=== PATIENT | female | born 2005 | race Two or more races ===

== ENCOUNTER 2024-02-01 12:53 | Emergency (ER) | payer OTHER, SELFPAY ==
[2024-02-01 13:02] VITALS: BP 128/93; PULSE 90; TEMP 36.9; O2SAT 100; BMI 23.8
[2024-02-01] MEDS: DIPHENHYDRAMINE HCL 25 MG CAPSULE PO (14:16)
[2024-02-01] MEDS: FAMOTIDINE 20 MG TABLET PO (14:16)
[2024-02-01] MEDS: PREDNISONE 20 MG TABLET 60 MG PO (14:16)
--- NOTE | 2024-02-01 15:21 | ED_ITS ---
Documented by User: KEELY Lay 02/01/24 15:26 HPI - Skin/Abscess/Foreign Bdy General Chief complaint: Skin/Abscess/Foreign Body Stated complaint: rash Time Seen by Provider: 02/01/24 13:54 Source: patient Mode of arrival: walk-in Limitations: no limitations History of Present Illness HPI narrative: Through hospital contracted airplane flight attendant, this is a 18-year-old female who prese nted to the emergency department with complaint of rash. Onset about 3 weeks ago. Greatest concentration has been to her face, but also has complaint of areas to her back, abdomen. Patient reports that she was in contact with the chemical that is sprayed on grass. States that her tongue feels a little heavy. Otherwise denies any shortness of breath, difficulty swallowing. Quality:?as above Severity:?mild Timing:?as above Context: Normal setting and activity? Modifying factors:?has been taking benadryl Associated symptoms: as above Related Data Previous Rx's ?Medication ?Instructions ?Recorded famotidine 20 mg tablet (Pepcid) 20 mg PO BID 5 days #10 tabs 02/01/24 fexofenadine 60 mg tablet (Tamar 60 mg PO Q12H PRN allergy symptoms 02/01/24 Allergy) #14 tabs prednisone 20 mg tablet 40 mg (2 x 20 mg) PO DAILY 5 days 02/01/24 #10 tabs Allergies Allergy/AdvReac Type Severity Reaction Status Date / Time No Known Drug Allergies Allergy Verified 02/01/24 13:07 Review of Systems ROS Narrative CONST: Denies fever, chills HENT: Denies congestion, sore throat, trouble swallowing EYES: Denies eye itching, eye redness, eye swelling RESP: Denies difficulty breathing, choking MS: Denies swelling SKIN: +rash.? Denies wound NEURO: Denies numbness, paresthesias, weakness Exam Narrative Exam Narrative: Vital signs reviewed Nurses notes noted CONST: Nontoxic, well appearing, well nourished, in no distress.? No diaphoresis.?? HENT: normocephalic, atraumatic, moist mucous membrane, no abnormalities of the nose noted, hearing normal EYES: normal appearing conjunctiva, no apparent discharge bilat NECK: normal appearance MS: no edema, tenderness SKIN: (+) RASH. Only appreciated maculopapular lesions to face only. NEURO: A&Ox 3 PSYCH: normal mood, affect Constitutional Vital Signs, click to edit/add: Last Vital Signs Temp 98.4 F 02/01/24 13:02 Pulse 90 02/01/24 13:02 Resp 16 02/01/24 13:02 BP 128/93 H 02/01/24 13:02 Pulse Ox 100 02/01/24 13:02 Course Vital Signs Vital signs: Vital Signs Temperature 98.4 F 02/01/24 13:02 Pulse Rate 90 02/01/24 13:02 Respiratory Rate 16 02/01/24 13:02 Blood Pressure 128/93 H 02/01/24 13:02 Pulse Oximetry 100 02/01/24 13:02 Temperature 98.4 F 02/01/24 13:02 Pulse Rate 90 02/01/24 13:02 Respiratory Rate 16 02/01/24 13:02 Blood Pressure 128/93 H 02/01/24 13:02 Pulse Oximetry 100 02/01/24 13:02 MDM - Skin/Abscess/Foreign Bdy MDM Narrative Medical decision making narrative: This is a pleasant 18-year-old female who presents to the emergency department with complaint of rash. History and physical communicated through contracted airplane flight attendant. Mainly locating rash to face. Has also had it on abdomen, back. Reports contact with, that sprays on the grass about 3 weeks ago. Has been using Benadryl without relief. States that the rash is itchy. Denies any pain. Denies any shortness of breath, difficulty swallowing. On arrival, afebrile, vital signs are stable. On exam, nontoxic, well-appearing patient in no distress. He has maculopapular lesions diffusely to her face. No other lesions were appreciated on exam. Airway clear. Favor contact dermatitis Shingles, allergic reaction less likely based on history and physical exam Patient given dose of prednisone, Pepcid, Benadryl in the emergency department Disposition ? The patient was discharged. Plan: Patient will be discharged to home. Condition at time of disposition: stable She was given prescription for prednisone, fexofenadine, and Pepcid Advised to follow up with primary provider. Advised to return for any worsening and/or development of new, concerning signs or symptoms PLEASE NOTE: Portions of the medical record may have been produced using electronic staff psychologist and may contain errors with respect to translation of words which may not have been identified prior to finalization of the chart. Discharge Plan Discharge Stand Alone Forms: Portal Instructions Chief Complaint: Skin/Abscess/Foreign Body Clinical Impression: Pruritic rash Contact dermatitis Qualifiers: Contact dermatitis type: unspecified Contact dermatitis trigger: unspecified trigger Qualified Code(s): L25.9 - Unspecified contact dermatitis, unspecified cause Patient Disposition: Home, Self-Care Time of Disposition Decision: 13:57 Condition: Good Mode of Transportation: Private Vehicle Prescriptions / Home Meds: New prednisone 20 mg tablet 40 mg PO DAILY 5 Days Qty: 10 0RF famotidine [Pepcid] 20 mg tablet 20 mg PO BID 5 Days Qty: 10 0RF fexofenadine [Tamar Allergy] 60 mg tablet 60 mg PO Q12H PRN (Reason: allergy symptoms) Qty: 14 0RF Print Language: Portuguese Instructions: Contact Dermatitis (ED) Discharge Date/Time: 02/01/24 14:21 Documented by User: Moi Gutiérrez MD 02/01/24 20:39 HPI - Skin/Abscess/Foreign Bdy General Chief complaint: Skin/Abscess/Foreign Body Stated complaint: rash Time Seen by Provider: 02/01/24 13:54 Related Data Previous Rx's ?Medication ?Instructions ?Recorded famotidine 20 mg tablet (Pepcid) 20 mg PO BID 5 days #10 tabs 02/01/24 fexofenadine 60 mg tablet (Tamar 60 mg PO Q12H PRN allergy symptoms 02/01/24 Allergy) #14 tabs prednisone 20 mg tablet 40 mg (2 x 20 mg) PO DAILY 5 days 02/01/24 #10 tabs Allergies Allergy/AdvReac Type Severity Reaction Status Date / Time No Known Drug Allergies Allergy Verified 02/01/24 13:07 Exam Constitutional Vital Signs, click to edit/add: Last Vital Signs Temp 98.4 F 02/01/24 13:02 Pulse 90 06/11/24 13:02 Resp 16 02/01/24 13:02 BP 128/93 H 02/01/24 13:02 Pulse Ox 100 02/01/24 13:02 Course Vital Signs Vital signs: Vital Signs Temperature 98.4 F 02/01/24 13:02 Pulse Rate 90 02/01/24 13:02 Respiratory Rate 16 02/01/24 13:02 Blood Pressure 128/93 H 02/01/24 13:02 Pulse Oximetry 100 02/01/24 13:02 Temperature 98.4 F 02/01/24 13:02 Pulse Rate 90 02/01/24 13:02 Respiratory Rate 16 02/01/24 13:02 Blood Pressure 128/93 H 02/01/24 13:02 Pulse Oximetry 100 02/01/24 13:02 MDM - Skin/Abscess/Foreign Bdy MDM Narrative Medical decision making narrative: This is a pleasant 18-year-old female who presents to the emergency department with complaint of rash. History and physical communicated through contracted airplane flight attendant. Mainly locating rash to face. Has also had it on abdomen, back. Reports contact with, that sprays on the grass about 3 weeks ago. Has been using Benadryl without relief. States that the rash is itchy. Denies any pain. Denies any shortness of breath, difficulty swallowing. On arrival, afebrile, vital signs are stable. On exam, nontoxic, well-appearing patient in no distress. He has maculopapular lesions diffusely to her face. No other lesions were appreciated on exam. Airway clear. Favor contact dermatitis Shingles, allergic reaction less likely based on history and physical exam Patient given dose of prednisone, Pepcid, Benadryl in the emergency department Disposition ? The patient was discharged. Plan: Patient will be discharged to home. Condition at time of disposition: stable She was given prescription for prednisone, fexofenadine, and Pepcid Advised to follow up with primary provider. Advised to return for any worsening and/or development of new, concerning signs or symptoms PLEASE NOTE: Portions of the medical record may have been produced using electronic staff psychologist and may contain errors with respect to translation of words which may not have been identified prior to finalization of the chart. I, Dr Gutiérrez, have reviewed the above progress note and course of action in the ER; agree with the above. I have gone over history and physical, and discussed disposition and treatment plan with the patient. Discharge Plan Discharge Stand Alone Forms: Portal Instructions Chief Complaint: Skin/Abscess/Foreign Body Clinical Impression: Pruritic rash Contact dermatitis Qualifiers: Contact dermatitis type: unspecified Contact dermatitis trigger: unspecified trigger Qualified Code(s): L25.9 - Unspecified contact dermatitis, unspecified cause Patient Disposition: Home, Self-Care Time of Disposition Decision: 13:57 Condition: Good Mode of Transportation: Private Vehicle Prescriptions / Home Meds: New prednisone 20 mg tablet 40 mg PO DAILY 5 Days Qty: 10 0RF famotidine [Pepcid] 20 mg tablet 20 mg PO BID 5 Days Qty: 10 0RF fexofenadine [Tamar Allergy] 60 mg tablet 60 mg PO Q12H PRN (Reason: allergy symptoms) Qty: 14 0RF Print Language: Portuguese Instructions: Contact Dermatitis (ED) Discharge Date/Time: 02/01/24 14:21
== END 2024-02-01 14:21 | disposition home or self-care (01) ==
PROVIDERS: Emergency Provider Emergency Medicine
DX: L25.9 Unspecified contact dermatitis, unspecified cause (principal); L29.9 Pruritus, unspecified
CPT/HCPCS: 99284

== ENCOUNTER 2024-02-22 13:37 | Outpatient (OUT) | payer OTHER, SELFPAY ==
[2024-02-22 15:29] LABS: Free T4 0.91 ng/dL (0.76-1.46)
== END 2024-02-22 13:38 | disposition home or self-care (01) ==
LOC: LAB 13:41
PROVIDERS: PCP Nurse Practitioner Family; Visit Provider Nurse Practitioner Family
DX: L65.9 Nonscarring hair loss, unspecified (principal); R53.83 Other fatigue
CPT/HCPCS: 36415; 84436; 84439; 84443